=== PATIENT | male | born 1990 | race Caucasian/White ===

== ENCOUNTER 2018-09-22 02:40 | Emergency (ER) | payer OTHER ==
[~2018-09-22] VITALS: Ht 182.9 cm; Wt 73.9 kg
[~2018-09-22 02:40] MED LIST: ALBU90OI INH; AZIT250 PO; AZIT500 PO; Bactrim Ds Tab1 EACH PO; CYCL10 PO; DIPATR PO; DOXY100 PO; HYDACE5 PO; IBUP600 PO; IBUP800 PO; INDO50 PO; LORA1 PO; NAPR500 PO; OXYACE5T PO; PHENA200 PO; PRED20 PO; PROM25 PO; RXHYDACE PO; RXLORA1 PO; TAMS.4ER PO; TRAM50 PO; Ultram50 MG PO; Zofran Odt4 MG SL
[2018-09-22] MEDS ORDERED: ERYT1OIN BOTHEYES (02:55)
== END 2018-09-22 03:12 | disposition home or self-care (01) ==
LOC: ER 02:40
DX: T65.891A Toxic effect of other specified substances, accidental (unintentional), initial encounter (principal); F17.200 Nicotine dependence, unspecified, uncomplicated; Z79.899 Other long term (current) drug therapy
CPT/HCPCS: 99283

== ENCOUNTER 2021-06-16 12:04 | Emergency (ER) | payer OTHER ==
[~2021-06-16] VITALS: Ht 177.8 cm; Wt 79.4 kg
[~2021-06-16 12:04] MED LIST changes: +ERYT1OIN BOTHEYES
[2021-06-16] MEDS ORDERED: Robaxin750 MG PO (12:51)
== END 2021-06-16 13:00 | disposition home or self-care (01) ==
LOC: ER 12:04
DX: T14.90XA Injury, unspecified, initial encounter (principal); M62.830 Muscle spasm of back; M25.561 Pain in right knee; F17.200 Nicotine dependence, unspecified, uncomplicated; V43.62XA Car passenger injured in collision with other type car in traffic accident, initial encounter

== ENCOUNTER 2021-11-25 17:44 | Emergency (ER) | payer OTHER ==
[~2021-11-25] VITALS: Ht 182.9 cm; Wt 65.8 kg
[~2021-11-25 17:44] MED LIST changes: +Robaxin750 MG PO
[2021-11-25 18:45] LABS: BASOPHILS ABSOLUTE AUTO 0.02 K/mm3 (0.00-0.23); BASOPHILS PERCENT AUTO 0 % (0-2); EOSINOPHILS ABSOLUTE AUTO 0.01 K/mm3 (0.00-0.68); EOSINOPHILS PERCENT AUTO 0 % (0-6); Hematocrit 42.9 % (37.0-53.0); Hemoglobin 14.6 g/dL (13.5-17.5); IMMATURE GRAN ABSOLUTE AUTO 0.02 K/mm3 (0.00-0.10); IMMATURE GRAN PERCENT AUTO 0 % (0-1); LYMPHOCYTES ABSOLUTE AUTO 0.36 K/mm3 (0.84-5.20); LYMPHOCYTES PERCENT AUTO 6 % (21-46); MONOCYTES PERCENT AUTO 20 % (4-13); Mean Corpuscular HGB 31.9 pg (26.0-34.0); Mean Corpuscular Volume 94 fL (80-100); Mean Platelet Volume 10.2 fL (9.1-12.4); NEUTROPHILS ABSOLUTE AUTO 4.27 K/mm3 (1.96-9.15); NEUTROPHILS PERCENT AUTO 73 % (41-73); Platelet Count 251 K/mm3 (150-400); RDW Coefficient Variation 14.1 % (11.7-14.2); RDW Standard Deviation 48.8 fL (35.1-46.3); Red Blood Cell Count 4.58 M/mm3 (4.30-5.90); White Blood Cell Count 5.88 K/mm3 (4.00-11.30)
[2021-11-25 18:57] LABS: Albumin, Blood 4.3 g/dL (3.4-5.0); Albumin/Globulin Ratio 1.2 (0.8-1.8); Bilirubin, Total 0.3 mg/dL (0.1-1.0); Bun/Creatinine Ratio 16.8 (12.0-20.0); Calcium, Blood 9.4 mg/dL (8.5-10.1); Creatinine, Blood 0.89 mg/dL (0.60-1.20); Globulin, Blood 3.7 g/dL (2.2-4.0); Potassium, Blood 3.6 mmol/L (3.5-5.5)
[2021-11-25] MEDS ORDERED: Pepcid40 MG PO (21:07)
[2021-11-25] MEDS ORDERED: ONDA4ODT SL (21:07)
== END 2021-11-25 21:19 | disposition home or self-care (01) ==
LOC: ER 17:44
PROVIDERS: Emergency Medicine
DX: K92.2 Gastrointestinal hemorrhage, unspecified (principal); F17.200 Nicotine dependence, unspecified, uncomplicated
CPT/HCPCS: 36415; 80053; 85025; 86850; 86900; 86901; 93005; 93010; 96374; 96375; 99283-25; A9270; C9113; J1790